=== PATIENT | female | born 1940 | race Caucasian/White ===

== ENCOUNTER 2019-12-19 09:28 | Emergency (ER) | payer MEDICARE, OTHER ==
[~2019-12-19] VITALS: Ht 165.1 cm; Wt 150.6 kg
[~2019-12-19 09:28] MED LIST: BACTRIM DS TAB1 EACH PO; JANUMET XR 50-1 EAC1 PO; LEVOTHYROXINE88 MCG PO; LISINOPRIL40 MG PO; PAROXETINE HCL20 MG PO; PERCOCET 7.5-31 EACH PO; PRAVACHOL80 MG PO; TRAMADOL HCL50 MG PO
[2019-12-19] MEDS ORDERED: ATORVASTATIN CA20 MG PO (09:53)
[2019-12-19] MEDS ORDERED: MEMANTINE HCL5 MG PO (09:53)
[2019-12-19] MEDS ORDERED: BUPROPION XL150 MG PO (09:54)
[2019-12-19] MEDS ORDERED: METFORMIN HCL500 M1 PO (09:54)
[2019-12-19] MEDS ORDERED: ADVIL200 MG PO (09:55)
[2019-12-19] MEDS ORDERED: ACETAMINOPHEN500 MG PO (09:55)
== END 2019-12-19 15:29 | disposition home or self-care (01) ==
LOC: ED 09:28
DX: H49.02 Third [oculomotor] nerve palsy, left eye (principal); E11.9 Type 2 diabetes mellitus without complications; Z79.899 Other long term (current) drug therapy; Z79.84 Long term (current) use of oral hypoglycemic drugs
CPT/HCPCS: 70450; 70496; 70498; 70551; 80053; 85025; 85651; 99284-25; J2060; Q9967

== ENCOUNTER 2020-04-11 18:48 | Observation (INO) | payer MEDICARE, OTHER ==
[~2020-04-11] VITALS: Ht 165.1 cm; Wt 95.4 kg
[~2020-04-11 18:48] MED LIST changes: +ACETAMINOPHEN500 MG PO; +ADVIL200 MG PO; +ATORVASTATIN CA40 MG PO; +BUPROPION XL150 MG PO; +METFORMIN HCL500 M1 PO; +NAMENDA10 MG PO
--- NOTE | 2020-04-11 22:00 | NUR ---
PT ARRIVED VIA STRETCHER TO [facility]. SHE WAS ABLE TO SCOOT OVER FROM STRETCHER TO THE BED. VS ENTERED, BP IS HIGH BUT THERE ARE ORDERS FOR PERMISSIVE HTN. TELE IS IN PLACE AND PT HAS FRESH ICEWATER. ORIENTED PT TO ROOM AND CALL LIGHT. SHE DENIES NEEDS AT THIS TIME. CALL LIGHT IS CLOSE.
--- NOTE | 2020-04-11 23:33 | NUR ---
ADMISSION COMPLETED BY BRITNEY LÓPEZ. ADMISSION ASSESEMENT COMPLETED. PATIENT HAS IV INFUSING PER ORDER. PATIENT DENIES ANY PAIN OR NAUSEA. PATIENT HAS ATTEND IN PLACE AND IS DRY AT THIS TIME. PATIENT [ROVIDED WITH FRESH ICE WATER. PATIENT ORIENTED TO ROOM AND FLOOR. PATIENT EDUCATED ABOUT PLAN OF CARE. PATIENT DENIES ANY QUESTIONS. NO NEEDS NOTED. PATIENT IS ON TELE #5, SR. CALL LIGHT IN REACH.
--- NOTE | 2020-04-12 02:19 | NUR ---
PATIENTS IV WAS BEEPING. PATIENTS IV IS PATENT. IV INFUSING PER ORDER. PATIENT DENIES ANY NEEDS. SON REMAINS IN THE ROOM. CALL LIGHT IN REACH.
--- NOTE | 2020-04-12 03:48 | NUR ---
IN TO ASST PT TO THE BSC, 1PA/SBA PIVOT, NO FURTHER NEEDS
--- NOTE | 2020-04-12 04:17 | NUR ---
PATIENT IS RESTING IN BED WITH EYES CLOSED, RR 17. TELE #5, HR 75, SR. CALL LIGHT IN REACH. BED ALARM ON FOR SAFETY.
--- NOTE | 2020-04-12 06:43 | NUR ---
PATIENT RESTED ON AND OFF THROUGHOT THE SHIFT. PATIENT IS ON A LOW FAT DIET. PT CONSULT. 1PA PIVOT TO BSC. PATIENT IS ON RA. AAOX4. NEURO CHECKS ARE NEGATIVE. TELE #5, SR, HR IN THE 80'S
--- NOTE | 2020-04-12 06:49 | NUR ---
PATIENT UP TO THE BSC WITH A SBA. PATIENT WAS ABLE TO VOID. PATIENT IS NOW BACK IN BED RESTING. PATIENTS VITALS TAKEN AND RECORDED. INTAKE AND OUTPUT RECORDED. PATIENTS MORNING MEDICATIONS GIVEN PER ORDER. PATIENT DENIES ANY SOB. NEUROS CHECKS NEGATIVE. ALARM ON FOR SAFETY. CALL LIGHT IN REACH.
--- NOTE | 2020-04-12 07:18 | NUR ---
REPORT RECEVIED FROM MARIBEL SUGGS. PT RESTING IN BED WATCHING TV AND REVIEWING MENU. PT DENIES PAIN AND NAUSEA. TELEMETRY MONITORING SHOWS NORMAL SINUS RHYTHEM. PT DENIES ADDITIONAL REQUSTS OR COMPLAINTS. CALL LIGHT WITHIN REACH. BED RAILS UP.
--- NOTE | 2020-04-12 09:23 | NUR ---
MORNING ASSESSMENT AND MEDICAITON DUE. PT UP TO CHAIR FINISHING WORKING WITH SARA FROM PHYSICAL THERAPY. PT UP TO CHAIR AND WORKING ON BREAKFAST. PT NOTED TO HAVE CLEAR LIQUID TRAY ORDERED. PT ENCORUAGED TO ORDER ADDIITONAL FOOD. PT STATES SHE IS ON THE KETO DIET AND DOES NOT WANT TO EAT CARBOHYDRATES OR SUGARS. PT EDUCATION DONE REGARDING LOW FAT DIET ORDER. PT ENCOURAGED TO ASK MD DURING ROUNDS ABOUT HER CREATIVE WRITER DIET PLAN. PT REPORTS 1/10 LEFT HIP PAIN STATING "IT ALWAYS HURTS, I NEED A REPLACEMENT IF I LOSE WEIGHT." PT DENIES NEED FOR PAIN MEDICAITON AT THIS TIME. NIH STROKE SCORE ASSESSMENT DONE, SCORE OF 0. PT UP TO RESTROOM WITH STAND BY ASSIST AND FRONT WHEEL WALKER. PT VOIDS CLEAR YELLOW URINE WITHOUT ISSUE AND PERFORMS SELF JAJA CARE. STAND BY ASSIST WITH FRONT WHEEL WALKER BACK TO CHAIR. PT REPORTS "MY ONLY PROBLEM IS MY LEFT EYE IS BLURRY." NO NYSTAGMAS NOTED. TELEMENTRY MONITORING SHOWS NORMAL SINUS RHYTHEM, AROLDO MURMUR NOTED. PT REPORTS OCCATIONAL DIZZINESS "WHEN I FIRST GET UP IN THE MORNING." PT REMAINS UP TO CHAIR. PTS SON AT BEDSIDE. PT DENIES ADDITIONAL REQUESTS OR COMPLAINTS. CALL LIGHT WITHIN REACH. WARM BLANKETS PROVIDED.
--- NOTE | 2020-04-12 09:59 | NUR ---
PATIENT UP TO BR USING FWW, TOLERATED WELL. SON AND RN IN ROOM. WILL ENCOURAGE FWW VS WHEELCHAIR FOR BR NEEDS. BACK TO CHAIR, CALL LIGHT IN REACH. VITALS AND I&OS CHARTED.
[2020-04-12] MEDS ORDERED: CLOPIDOGREL75 MG PO (10:25)
[2020-04-12] MEDS ORDERED: LO-DOSE ASPIRIN81 MG PO (10:26)
--- NOTE | 2020-04-12 11:23 | NUR ---
PT READY FOR DISCHARGE. DISCHARGE INSTRUCTIONS REVIEWED WITH PT. PT VERBALIZES UNDERSTANDING OF INSTRUCTIONS, MEDICATIONS AND FOLLOW UP APPOINTMENT. IV DC'D PER PROTOCOL, GAAQUILESE AND COBHELGA APPLIED. VITAL SIGNS STABLE. PT STATES HER SON WILL BE HERE TO PICK HER UP "ARROUND LUNCH." PHARMACIST WILL REVIEW MEDICATIONS AT THAT TIME WHEN SON ARRIVES. PT REMAINS UP TO CHAIR. CALL LIGHT WITHIN REACH. PT DENIES ADDITIONAL REQUESTS OR COMPLAINTS AT THIS TIME.
--- NOTE | 2020-04-12 11:25 | NUR ---
Pt states she lives in a low income apartment in [place]. Her son, Isaías oden live in town and checks on her frequently. She has a state paid cg M_F 8-3. She has a Life alert. Pt has difficulty with her mememory. Son, Jose Rafael, is present and assists her when needed. She states she no longer drives. Pt and son feel she is safe to dc to home with family and CG to assist.
--- NOTE | 2020-04-12 12:20 | NUR ---
PTS FAMILY ARRIVED. PT TRANSFERES SELF TO WHEEL CHAIR. PT WHEELED FROM MED/SURG BY MARIBEL SIMMS. NO ADDITIONAL REQUESTS OR QUESTIONS.
--- NOTE | 2020-04-12 15:11 | EKG ---
[facility] [address] [place], [place] [address] Signed Sinus rhythm with 1st degree AV block Right bundle branch block Abnormal ECG No previous ECGs available Confirmed by SANTANA VAUGHN MD ([id number]) on 04/12/2020 3:11:04 PM Electronically Signed By: SANTANA VAUGHN MD 04/12/20 151 PATIENT NAME: RUSS REAGAN Electrocardiogram DATE OF : 44 PHYSICIAN: SANTANA VAUGHN MD REPORT #: [id number] REPORT IS CONFIDENTIAL AND NOT TO BE RELEASED WITHOUT AUTHORIZATION
== END 2020-04-12 12:15 | disposition home or self-care (01) ==
LOC: ED 18:48 → MS 18:49
PROVIDERS: ADMIT Internal Medicine; ATTEND Internal Medicine
DX: G45.9 Transient cerebral ischemic attack, unspecified (principal); I10 Essential (primary) hypertension; E78.5 Hyperlipidemia, unspecified; E11.9 Type 2 diabetes mellitus without complications; Z20.822 Contact with and (suspected) exposure to COVID-19; Z79.84 Long term (current) use of oral hypoglycemic drugs; Z86.73 Personal history of transient ischemic attack (TIA), and cerebral infarction without residual deficits
CPT/HCPCS: 70450; 70496; 70498; 71045; 80048; 81001; 83735; 84484; 85025; 93005; 93010; C9803; J7030; Q9967; U0003

== ENCOUNTER 2022-01-16 09:57 | Emergency (ER) | payer MEDICARE, OTHER ==
[~2022-01-16] VITALS: Ht 165.1 cm; Wt 95.2 kg
[~2022-01-16 09:57] MED LIST changes: +CLOPIDOGREL75 MG PO; +LO-DOSE ASPIRIN81 MG PO
[2022-01-16] MEDS ORDERED: DONEPEZIL HCL5 MG PO (10:54)
[2022-01-16] MEDS ORDERED: EUTHYROX88 MCG PO (10:55)
[2022-01-16] MEDS ORDERED: ELIQUIS5 MG PO (10:55)
[2022-01-16] MEDS ORDERED: CEPHALEXIN500 M1 PO (17:42)
--- NOTE | 2022-01-17 07:00 | EKG ---
[facility] [address] [place] [address] Signed Idioventricular rhythm with premature ventricular complexes or fusion complexes with ventricular escape complexes Right bundle branch block Septal infarct , age undetermined T wave abnormality, consider inferolateral ischemia Abnormal ECG When compared with ECG of 11-APR-2020 19:49, Idioventricular rhythm has replaced Sinus rhythm Vent. rate has decreased BY 43 BPM Confirmed by SANTANA VAUGHN MD ([id number]) on 01/17/2022 7:00:11 AM Electronically Signed By: SANTANA VAUGHN MD 01/17/22 0700 PATIENT NAME: RUSS REAGAN Electrocardiogram DATE OF : 44 PHYSICIAN: SANTANA VAUGHN MD REPORT #: [id number] REPORT IS CONFIDENTIAL AND NOT TO BE RELEASED WITHOUT AUTHORIZATION
== END 2022-01-16 18:35 | disposition short-term general hospital (02) ==
LOC: ED 09:57
DX: N39.0 Urinary tract infection, site not specified (principal); R00.1 Bradycardia, unspecified; E11.9 Type 2 diabetes mellitus without complications; Z79.82 Long term (current) use of aspirin; Z79.899 Other long term (current) drug therapy; Z20.822 Contact with and (suspected) exposure to COVID-19
CPT/HCPCS: 36415; 51701; 71045; 80053; 80162; 81001; 84484; 85025; 87502; 93005; 93010; 99285-25; C9803; J0696; U0003